=== PATIENT | male | born 1945 | race Caucasian/White ===

== ENCOUNTER → 2023-11-29 17:33 | Outpatient (REF) | payer MEDICARE, OTHER, SELFPAY | LOC: MRI 17:33 | PROVIDERS: ATTENDING PHYSICIAN Physician Assistant Medical | DX: K86.9 Disease of pancreas, unspecified (principal) | CPT/HCPCS: 74183; A9575 ==

== ENCOUNTER → 2023-12-16 08:55 | Outpatient (REF) | payer MEDICARE, OTHER, SELFPAY | LOC: WDC 08:55 | PROVIDERS: ATTENDING PHYSICIAN Specialist; FAMILY PHYSICIAN Physician Assistant Medical | DX: N64.4 Mastodynia (principal) | CPT/HCPCS: 76642; 77062; 77066 ==

== ENCOUNTER → 2024-07-04 15:12 | Outpatient (REF) | payer MEDICARE, OTHER, SELFPAY | LOC: HWRAD 15:12 | PROVIDERS: ATTENDING PHYSICIAN Student in an Organized Health Care Education/Training Program | DX: M79.601 Pain in right arm (principal) | CPT/HCPCS: 73030 ==

== ENCOUNTER → 2024-08-17 13:27 | Outpatient (REF) | payer MEDICARE, OTHER, SELFPAY ==
[2024-08-17 17:16] LABS: TSH 1.74 uIU/ml (0.47-4.68)
[2024-08-19 21:01] LABS: Thyroglobulin <0.1 ng/mL (1.3-31.8); Thyroglobulin Antibodies <0.9 IU/mL (0.0-4.0)
== END ==
LOC: HWLAB 13:27
PROVIDERS: ATTENDING PHYSICIAN Internal Medicine Endocrinology, Diabetes & Metabolism; FAMILY PHYSICIAN Physician Assistant Medical
DX: C73 Malignant neoplasm of thyroid gland (principal)
CPT/HCPCS: 36415; 84432; 84443; 86800

== ENCOUNTER → 2025-08-24 13:30 | Outpatient (REF) | payer MEDICARE, OTHER, SELFPAY ==
[2025-08-24 16:13] LABS: TSH 1.58 uIU/ml (0.47-4.68)
== END ==
LOC: HWLAB 13:30
PROVIDERS: ATTENDING PHYSICIAN Internal Medicine Endocrinology, Diabetes & Metabolism; FAMILY PHYSICIAN Physician Assistant Medical
DX: C73 Malignant neoplasm of thyroid gland (principal)
CPT/HCPCS: 36415; 84432; 84443; 86800